=== PATIENT | female | born 1990 | race Two or more races ===

== ENCOUNTER 2024-09-05 15:00 | Emergency (ER) | payer MEDICAID, OTHER ==
[~2024-09-05] VITALS: Ht 149.9 cm; Wt 4.0 kg
[2024-09-05] MEDS: SODIUM CHLORIDE 0.9% 1,000 ML IV ONE (15:45)
[2024-09-05] MEDS: ACETAMINOPHEN 325 MG TAB PO ONE (15:45)
--- NOTE | 2024-09-05 16:02 | ED.PDOC ---
GI ASSESSMENT HPI Comments 34Y F with PMHx presents to ED for chief complaint abd pain x3days with suprapubic cramping, cough, sore throat, fever, congestion, headache, and back pain. Pt states she is approximately 2months . OBGYN hx A1. Pt has had one miscarriage. Pt denies alcohol, tobacco, and illicit drug use. Chief Complaint: Abdominal Pain Time Seen by MD: 15:36 Primary Care Provider: NONE Reviewed Notes: Nurses Notes, Medications, Allergies Allergies: Coded Allergies: NO KNOWN ALLERGIES (Unverified , 09/05/24) Information Source: Patient Mode of Arrival: Ambulatory Timing: Days Duration: Since onset Quality: Cramping, Colicky Vomitus: None Stool: Normal Severity: Mild Recent: None Recent Hx of: Current Pain Location: Suprapubic Modifying Factors: Nothing Associated sign and symptoms: Abdominal Pain, Other Past Medical History PAST MEDICAL HISTORY: Denies Surgical History: MOTORIZED SQUAD [employer]TAIN History: Spontaneous Family History Family History: Unknown Social History Smoker: Non-Smoker Alcohol: Denies ETOH Use Drugs: Denies Drug Use Lives In: Home Constitutional: reports: fever; denies: chills, diaphoresis, fatigue, malaise, sweats, weakness, others EENTM: reports: nose congestion, throat pain; denies: blurred vision, double vision, ear bleeding, ear discharge, ear drainage, ear pain, ear ringing, eye pain, eye redness, hearing loss, mouth pain, mouth swelling, nasal discharge, nose bleeding, nose pain, photophobia, tearing, throat swelling, voice changes, others Respiratory: reports: cough; denies: hemoptysis, orthopnea, SOB at rest, shortness of breath, SOB with excertion, stridor, wheezing, others Cardiovascular: denies: chest pain, dizzy spells, diaphoresis, Dyspnea on exertion, edema, irregular heart beat, left arm pain, lightheadedness, palpitations, PND, syncope, others Gastrointestinal: reports: abdominal pain; denies: abdomen distended, blood streaked bowels, constipated, diarrhea, dysphagia, difficulty swallowing, hematemesis, melena, nausea, poor appetite, poor fluid intake, rectal bleeding, rectal pain, vomiting, others Genitourinary: reports: pain (suprapubic), ; denies: abnormal vagina bleeding, burning, dyspareunia, dysuria, flank pain, frequency, hematuria, incontinence, vagina discharge, urgency, others Neurological: reports: headache; denies: dizziness, fainting, left sided numbness, left sided weakness, numbness, paresthesia, pre-existing deficit, right sided numbness, right sided weakness, seizure, speech problems, tingling, tremors, weakness, others Musculoskeletal: reports: back pain; denies: gout, joint pain, joint swelling, muscle pain, muscle stiffness, neck pain, others Integumetry: denies: bruises, change in color, change in hair/nails, dryness, laceration, lesions, lumps, rash, wounds, others Allergic/Immunocompromised: denies: Difficulty Healing, Frequent Infections, Hives, Itching, others Hematologic/Lymphatic: denies: anemia, blood clots, easy bleeding, easy bruising, swollen glands, others Endocrine: denies: excessive hunger, excessive sweating, excessive thirst, excessive urination, flushing, intolerance to cold, intolerance to heat, unexplained weight gain, unexplained weight loss, others Psychiatric: denies: anxiety, bipolar disorder, depression, hopeless, panic disorder, schizophrenia, sleepless, suicidal, others All Other Systems: Reviewed and Negative Physical Exam General Appearance: Moderate Distress, Normal, Other (Febrile) HEENT: Normal ENT Inspection, PERRL/EOMI, Pharyngeal Erythema, Pharynx Normal, TMs Normal Neck: Full Range of Motion, Non-Tender, Normal, Normal Inspection Respiratory: Chest Non-Tender, Lungs Clear, No Accessory Muscle Use, No Respiratory Distress, Normal Breath Sounds Cardiovascular: No Edema, No JVD, No Murmur, No Gallop, Normal Peripheral Pulses, Regular Rate/Rhythm Breast Exam: Deferred Gastrointestinal: Epigastric, No Organomegaly, No Pulsatile Mass, Normal Bowel Sounds, RUQ, Soft, Tenderness, Other () Genitalia: Deferred Pelvic: Deferred Rectal: Deferred Extremities: No calf tenderness, Normal capillary refill, Normal inspection, Normal range of motion, Non-tender, No pedal edema Musculoskeletal : Apperance: Normal Neurologic: Alert, plastics supervisor II-XII nml as Tested, No Motor Deficits, Normal Affect, Normal Mood, No Sensory Deficits Cerebellar Function: Normal Reflexes: Normal Skin: Dry, Normal Color, Warm Peripheral Pulses: 1+ carotid (R), 1+ carotid (L) Lymphatic: No Adenopathy Was a procedure done? Was a procedure done?: No GI differential Dx Differential Diagnosis: Cholecystitis, Constipation, Gastroenteritis, UTI, Dehydration, Drug toxicity, Electrolyte Imbalance, , Bacterial, Viral, Anemia Other Differential Diagnosis Flu syndrome strep pharyngitis COVID 19 infection X-Ray, Labs, Meds, VS Vital Signs Date Time Temp Pulse Resp B/P (MAP) Pulse Ox O2 Delivery O2 Flow Rate FiO2 09/05/24 17:11 98.0 09/05/24 17:11 98.0 105 17 112/57 (75) 96 98.0 09/05/24 16:29 129 18 111/65 (80) 96 09/05/24 16:29 129 18 96 Room Air 09/05/24 15:45 100.0 09/05/24 15:45 100.6 100.6 09/05/24 15:15 100.2 139 20 109/68 (82) 6 Lab Test 09/05/24 17:00 09/05/24 16:10 09/05/24 15:53 Range/Units Urine Color Colorless Yellow Urine Clarity Clear Clear Urine pH 6.0 5.0-9.0 Urine Specific [place] 1.001 1.001-1.035 Urine Protein Negative Negative Urine Ketones Negative Negative Urine Blood Negative Negative /uL Urine Nitrite Negative Negative Urine Bilirubin Negative Negative Urine Urobilinogen Normal Negative mg/dL Urine Leukocyte Esterase 2+ Negative /uL Urine RBC 1 0 - 4 /hpf Urine WBC <1 0 - 5 /hpf Urine Squamous Epithelial Cells Few <5 /hpf Urine Bacteria Few H None Seen /hpf Urine Glucose Normal Normal mg/dL Urine Test Positive Negative White Blood Count 5.7 4.4-10.8 10^3/uL Red Blood Count 4.20 4.0-5.20 10^6/uL Hemoglobin 12.7 12.2-16.2 g/dL Hematocrit 37.0 36.0-46.0 % Mean Corpuscular Volume 88.1 80.0-100.0 fL Mean Corpuscular Hemoglobin 30.2 28.0-32.0 pg Mean Corpuscular Hemoglobin Concent 34.3 32.0-36.0 g/dL Red Cell Distribution Width 13.3 11.8-14.3 % Platelet Count 145 140-450 10^3/uL Mean Platelet Volume 10.1 6.9-10.8 fL Neutrophils (%) (Auto) 80.9 H 37.0-80.0 % Lymphocytes (%) (Auto) 9.6 L 10.0-50.0 % Monocytes (%) (Auto) 8.8 0.0-12.0 % Eosinophils (%) (Auto) 0.1 0.0-7.0 % Basophils (%) (Auto) 0.6 0.0-2.0 % Neutrophils # (Auto) 4.6 1.6-8.6 10 ^3/uL Lymphocytes # (Auto) 0.6 0.4-5.4 10 ^3/uL Monocytes # (Auto) 0.5 0-1.3 10 ^3/uL Eosinophils # (Auto) 0 0-0.8 10 ^3/uL Basophils # (Auto) 0 0-0.2 10 ^3/uL Nucleated Red Blood Cells 0.1 % Sodium Level 133 L 136-145 mmol/L Potassium Level 3.1 L 3.5-5.1 mmol/L Chloride Level 102 98-107 mmol/L Carbon Dioxide Level 22 20-31 mmol/L Anion Gap 9 5-15 Blood Urea Nitrogen < 5 L 9-23 mg/dL Creatinine 0.74 0.550-1.02 mg/dL Glomerular Filtration Rate Calc 109 >90 mL/min BUN/Creatinine Ratio 6.8 L 10.0-20.0 Serum Glucose 114 H 74-106 mg/dL Calcium Level 9.6 8.7-10.4 mg/dL Magnesium Level 2.0 1.6-2.6 mg/dL Total Bilirubin 0.4 0.2-1.0 mg/dL Aspartate Amino Transferase (AST) 11 L 13-40 U/L Alanine Aminotransferase (ALT) 24 7-40 U/L Alkaline Phosphatase 62 46-116 U/L Total Protein 7.3 5.7-8.2 g/dL Albumin 4.5 3.2-4.8 g/dL Lipase 28 12-53 U/L Influenza Type A Antigen Negative Negative Influenza Type B Antigen Negative Negative SARS-CoV-2 Antigen (Rapid) Negative NEGATIVE Group A Streptococcus Rapid Positive Current Medications Medications (Trade) Dose Ordered Sig/Jessi Route Start Time Stop Time Status Last Admin Acetaminophen (Tylenol Tablet) 650 mg ONCE ONCE PO 09/05/24 15:45 09/05/24 15:46 DC 09/05/24 15:45 Ondansetron HCl (Zofran) 4 mg ONCE ONCE IV 09/05/24 15:45 09/05/24 15:46 DC 09/05/24 16:23 Sodium Chloride 500 ml @ 500 mls/hr Q1H ONCE IVB 09/05/24 15:45 09/05/24 16:44 DC 09/05/24 16:23 Potassium Bicarbonate (Klor-Con/Ef) 50 meq ONCE ONCE PO 09/05/24 17:15 09/05/24 17:16 DC 09/05/24 17:21 [place] [id number] Ph: [phone] DIAGNOSTIC IMAGING Diagnostic Imaging Report : [id number] Signed PATIENT: DIMITRY ALLEN ACCT: [id number] UNIT: [id number] : 1990 LOC: ER ROOM / BED: / AGE / SEX: 34 / F ADM STATUS: REG ER SERVICE 1540 ORDERING PHYSICIAN: MANPREET OCAMPO MD PROCEDURE(s): GBUS - GALLBLADDER REASON: Biliary colic ORDER NUMBER(s): [id number], ACCESSION NUMBER(s): [id number] Procedure: US GALLBLADDER 09/05/2024 03:47 PM Indication: Biliary colic Comparison: None Technique: Grayscale and color images of the right upper quadrant were obtained. FINDINGS: ASCITES: None. LIVER: Liver measures 10.9 cm in craniocaudal. Liver parenchyma is homogeneous in echotexture. No focal lesion is identified. No intrahepatic ductal dilatation. Normal directional flow is seen in the portal vein. GALLBLADDER: No gallstones. No gallbladder wall edema or pericholecystic fluid. COMMON BILE DUCT: 0.3 cm in caliber. PANCREAS: Visualized portions are unremarkable. RIGHT KIDNEY: Normal in size, 10 cm in craniocaudal without hydronephrosis. No focal lesions identified. AORTA, IVC: Visualized portions are unremarkable. OTHER: None. IMPRESSION: 1. No sonographic evidence for acute abnormality in the right upper quadrant. ATED BY: FARA WEAVER MD DICTATED DATE/TIME: 09/05/241626 SIGNED BY: FARA WEAVER MD SIGNED DATE/TIME: 09/05/241626 CC: X-Ray, Labs, Meds, VS Comment Course in the emergency department eventful patient came in because of abdominal pain abdominal cramps cough congestion sore throat fever CBC 5700 with 80.9% neutrophils normal H&H CMP normal except for potassium of 3.1 Lipase 28 Magnesium 2.0 Influenza A negative Influenza B negative COVID-19 negative Strep pharyngitis positive Ultrasound to the gallbladder is negative Urine shows 2+ leukocyte esterase and back area Patient will be discharged home to follow up with her PCP Time of 1ST Reevaluation: 16:06 Reevaluation 1ST: Unchanged Time of 2ND Reevaluation: 17:09 Reevaluation 2ND: Unchanged Patient Education/Counseling: Diagnosis, Treatment Family Education/Counseling: No Family Present Departure 1 Departure Time of Disposition: 17:54 Impression: Primary Impression: Febrile illness, acute Additional Impressions: Strep pharyngitis UTI (urinary tract infection) Qualified Codes: N30.00 - Acute cystitis without hematuria Qualified Codes: Z3A.08 - 8 weeks gestation of Disposition: 01 HOME / SELF CARE / HOMELESS Condition: Fair Additional Instructions: Fluids take Tylenol for aches and fever and follow up with your PCP e-Prescriptions Cefdinir (Cefdinir) 300 Mg Cap 1 CAP PO BID, #20 CAP Prov: MANPREET OCAMPO MD 09/05/24 Discharged With: Self Critical Care Note Critical Care Time?: No Stability Stability form required: No Heart Score Heart Score: Heart Score Response (Comments) Value History N/A 0 EKG N/A 0 Age <45 0 Risk Factors No known risk factors 0 Troponin N/A 0 Total 0 I personally scribed for MANPREET OCAMPO MD ([email or web address]) on 09/05/24 at 16:02. Electronically submitted by Leanna Vizcaino ([employer]). I personally scribed for MANPREET OCAMPO MD ([email or web address]) on 09/05/24 at 16:52. Electronically submitted by Leanna Vizcaino ([employer]). MANPREET OCAMPO MD Sep 05, 2024 16:02
[2024-09-05] MEDS: SODIUM CHLORIDE 0.9% 500 ML IVB ONE (16:23)
[2024-09-05] MEDS: ONDANSETRON HCL 4 MG/2 ML VIAL IV ONE (16:23)
[2024-09-05 16:28] LABS: Basophils # (auto) 0 10 ^3/uL (0-0.2); Basophils % (auto) 0.6 % (0.0-2.0); Eosinophils # (auto) 0 10 ^3/uL (0-0.8); Eosinophils % (auto) 0.1 % (0.0-7.0); Hemoglobin 12.7 g/dL (12.2-16.2); Lymphocytes # (auto) 0.6 10 ^3/uL (0.4-5.4); Lymphocytes % (auto) 9.6 % (10.0-50.0); Mean Corpuscular Hemoglobin 30.2 pg (28.0-32.0); Mean Corpuscular Hgb Conc. 34.3 g/dL (32.0-36.0); Mean Corpuscular Volume 88.1 fL (80.0-100.0); Monocytes # (auto) 0.5 10 ^3/uL (0-1.3); Monocytes % (auto) 8.8 % (0.0-12.0); Neutrophils # (auto) 4.6 10 ^3/uL (1.6-8.6); Neutrophils % (auto) 80.9 % (37.0-80.0); Nucleated Red Blood Cells % 0.1 %; Platelet Count (auto) 145 10^3/uL (140-450); Red Cell Distribution Width 13.3 % (11.8-14.3); White Blood Cell 5.7 10^3/uL (4.4-10.8)
--- NOTE | 2024-09-05 16:29 | DVH ---
Procedure: US GALLBLADDER 09/05/2024 03:47 PM Indication: Biliary colic Comparison: None Technique: Grayscale and color images of the right upper quadrant were obtained. FINDINGS: ASCITES: None. LIVER: Liver measures 10.9 cm in craniocaudal. Liver parenchyma is homogeneous in echotexture. No fo jennifer lesion is identified. No intrahepatic ductal dilatation. Normal directional flow is seen in the portal vein. GALLBLADDER: No gallstones. No gallbladder wall edema or pericholecystic fluid. COMMON BILE DUCT: 0.3 cm in caliber. PANCREAS: Visualized portions are unremarkable. RIGHT KIDNEY: Normal in size, 10 cm in craniocaudal without hydronephrosis. No focal lesions identifi ed. AORTA, IVC: Visualized portions are unremarkable. OTHER: None. IMPRESSION: 1. No sonographic evidence for acute abnormality in the right upper quadrant.
[2024-09-05 16:46] LABS: Alanine Aminotransferase 24 U/L (7-40); Albumin 4.5 g/dL (3.2-4.8); Alkaline Phosphatase 62 U/L (46-116); Anion Gap 9 (5-15); Aspartate Aminotransferase 11 U/L (13-40); BUN/Creatinine Ratio 6.8 (10.0-20.0); Bilirubin, Total 0.4 mg/dL (0.2-1.0); Blood Urea Nitrogen < 5 mg/dL (9-23); Calcium 9.6 mg/dL (8.7-10.4); Carbon Dioxide 22 mmol/L (20-31); Chloride 102 mmol/L (98-107); Glucose 114 mg/dL (74-106); Lipase 28 U/L (12-53); Potassium 3.1 mmol/L (3.5-5.1); Sodium 133 mmol/L (136-145); Total Protein 7.3 g/dL (5.7-8.2)
[2024-09-05] MEDS: POTASSIUM EFFERVESENT TAB 25 MEQ PO ONE (17:21)
[2024-09-05 17:22] LABS: COVID19 ANTIGEN SOFIA FIA NEGATIVE (NEGATIVE); Rapid Influenza A Negative (Negative); Rapid Influenza B Negative (Negative)
[2024-09-05 17:28] LABS: Urine Bacteria FEW /hpf (None Seen); Urine Blood Negative /uL (Negative); Urine Clarity Clear (Clear); Urine Color Colorless (Yellow); Urine Protein, UAD Negative (Negative); Urine Specific Gravity 1.001 (1.001-1.035); Urine Squamous Epithelial Cell FEW /hpf (<5); Urine Urobilinogen Normal (Negative); Urine WBC <1 /hpf (0 - 5)
[2024-09-05 17:30] LABS: Rapid Strep A Screen-Throat Positive
[2024-09-05] MEDS ORDERED: CEFD300C2 PO (17:58)
[2024-09-05] MEDS: cefTRIAXone 1GM/50ML D5W 50 ML IV ONE (18:04)
[2024-09-05 18:26] VITALS: BP 105/58; PULSE 100; RESP 16; TEMP 98.1; O2SAT 97
== END 2024-09-05 18:27 | disposition home or self-care (01) ==
LOC: ER 15:00
DX: O99.511 Diseases of the respiratory system complicating pregnancy, first trimester (principal); J02.0 Streptococcal pharyngitis; O23.41 Unspecified infection of urinary tract in pregnancy, first trimester; N39.0 Urinary tract infection, site not specified; Z20.822 Contact with and (suspected) exposure to COVID-19; Z3A.08 8 weeks gestation of pregnancy
CPT/HCPCS: 36415; 76705; 80053; 81001; 81025; 83690; 83735; 85025; 87426; 87804; 87880; 96361; 96365; 96375; 99285; J0696; J2405; J7040